=== PATIENT | male | born 1975 | race Caucasian/White ===

== ENCOUNTER 2017-12-10 07:03 | Emergency (ER) | END 2017-12-10 07:18 | disposition left against medical advice (07) | LOC: UCCORT 07:03 | DX: N39.9 Disorder of urinary system, unspecified (principal); Z53.21 Procedure and treatment not carried out due to patient leaving prior to being seen by health care provider ==

== ENCOUNTER 2018-06-06 08:08 | Emergency (ER) | payer BC ==
[2018-06-06 08:32] VITALS: BP 145/99
--- NOTE | 2018-06-06 08:40 | UC ---
Lower Extremity/Ankle HPI - HPI Summary HPI Summary: left great toe infection, redness and swelling. He is a runner and a toe nail that is growing into his skin and causeing pain. He clipped this nail short recently as well. NO DM or other medical problems. - History of Current Complaint Chief Complaint: YELENAkin Stated Complaint: LEFT TOE CONCERN Time Seen by Provider: 06/06/18 08:25 Hx Obtained From: Patient Onset/Duration: Gradual Onset, Lasting Days Severity Initially: Mild Severity Currently: Moderate Pain Intensity: 9 Aggravating Factor(s): Standing, Ambulation Alleviating Factor(s): Rest, Elevation Able to Bear Weight: Yes - Allergies/Home Medications Allergies/Adverse Reactions: Allergies Allergy/AdvReac Type Severity Reaction Status Date / Time No Known Allergies Allergy Verified 06/06/18 08:22 PMH/Surg Hx/FS Hx/Imm Hx Previously Healthy: Yes - Surgical History Surgical History: Yes Surgery Procedure, Year, and Place: RIGHT KNEE TORN MINISCUS REPAIR - Family History Known Family History: Positive: Other - No related foot disease. - Social History Alcohol Use: Occasionally Substance Use Type: None Smoking Status (MU): Former Smoker Type: Cigarettes When Did the Patient Quit Smoking/Using Tobacco: 1994 Household Exposure Type: Cigarettes Review of Systems Skin: Bruising, Other - redness. All Other Systems Reviewed And Are Negative: Yes Physical Exam Triage Information Reviewed: Yes Appearance: Well-Appearing, No Pain Distress, Well-Nourished Vital Signs: Initial Vital Signs Temp 98.3 F 06/06/18 08:22 Pulse 55 06/06/18 08:22 Resp 16 06/06/18 08:22 BP 145/99 06/06/18 08:22 Pulse Ox 99 06/06/18 08:22 Vital Signs Reviewed: Yes Eyes: Positive: Conjunctiva Clear ENT: Positive: Pharynx normal, Pharyngeal erythema Neck: Negative: Nuchal Rigidity Respiratory: Positive: No respiratory distress, No accessory muscle use Cardiovascular: Positive: Brisk Capillary Refill Abdomen Description: Negative: Distended Musculoskeletal: Positive: Strength Intact, ROM Intact Neurological: Positive: Alert, Muscle Tone Normal. Negative: Fatigued Psychological: Positive: Normal Response To Family. Negative: Age Appropriate Behavior Skin: Positive: Other - Left great toe medial nail is growing into the skin and there is inflammation that is localized. it is mildly tender. NO streaking or redness moving up the toe. Lower Extremity Course/Dx - Differential Dx/Diagnosis Provider Diagnoses: ingrown nail. toe cellulitis. Discharge - Sign-Out/Discharge Documenting (check all that apply): Patient Departure - Discharge Plan Condition: Good Disposition: HOME Prescriptions: Ciprofloxacin TAB* [Cipro 500 MG TAB*] 500 mg PO BID #20 tab Patient Education Materials: Ingrown Nail (ED), Paronychia (ED) Referrals: No Primary Care Phys,NOPCP [Primary Care Provider] - Additional Instructions: Epsom salt soaks twice a day. REturn for any worsening. - Billing Disposition and Condition Condition: GOOD Disposition: Home
== END 2018-06-06 08:45 | disposition home or self-care (01) ==
LOC: UCCORT 08:08
DX: L60.0 Ingrowing nail (principal); L03.032 Cellulitis of left toe; Z87.891 Personal history of nicotine dependence
CPT/HCPCS: 99212; G0463

== ENCOUNTER 2019-08-08 10:21 | Emergency (ER) | payer BC ==
[2019-08-08 11:02] VITALS: BP 127/84
[2019-08-08] MEDS ORDERED: Ondansetron ODT TAB* 4 MG PO ONE (11:30)
[2019-08-08] MEDS ORDERED: Acetaminophen TAB* 325 MG PO ONE (11:30)
--- NOTE | 2019-08-08 11:30 | UC ---
Headache HPI - HPI Summary HPI Summary: 44-year-old male comes in with chief complaint of headache. Headache started 3 days ago over the course of several hours. Patient relates the headache is a 10 out of 10. Does have photophobia and nausea and vomiting. He has taken some [id number] medications which have not helped at all with the headache. Denies any neck pain. No upper respiratory tract infection symptoms no fevers noted at home. Besides the photophobia no vision changes no difficulty speech no weakness or numbness. - History Of Current Complaint Chief Complaint: UCHeadache Stated Complaint: MAURER Time Seen by Provider: 08/08/19 11:05 Pain Intensity: 10 - Allergies/Home Medications Allergies/Adverse Reactions: Allergies Allergy/AdvReac Type Severity Reaction Status Date / Time No Known Allergies Allergy Verified 08/08/19 11:03 Home Medications: Home Medications NK [No Home Medications Reported] 08/08/19 [History Confirmed 08/08/19] PMH/Surg Hx/FS Hx/Imm Hx Previously Healthy: Yes - Surgical History Surgical History: Yes Surgery Procedure, Year, and Place: RIGHT KNEE TORN MINISCUS REPAIR - Family History Known Family History: Positive: Other - No related foot disease. - Social History Alcohol Use: Occasionally Substance Use Type: None Smoking Status (MU): Former Smoker Type: Cigarettes When Did the Patient Quit Smoking/Using Tobacco: 1994 Household Exposure Type: Cigarettes Review of Systems All Other Systems Reviewed And Are Negative: Yes Constitutional: Positive: Other - SEE HPI Skin: Positive: Negative Eyes: Positive: Photophobia ENT: Positive: Negative Respiratory: Positive: Negative Cardiovascular: Positive: Negative Gastrointestinal: Positive: Vomiting, Nausea Genitourinary: Positive: Negative Motor: Positive: Negative Neurovascular: Positive: Negative Musculoskeletal: Positive: Negative Neurological: Positive: Headache Psychological: Positive: Negative Is Patient Immunocompromised?: No Physical Exam Triage Information Reviewed: Yes Appearance: Well-Nourished, Ill-Appearing - MILD, Pain Distress - MILD Vital Signs: Initial Vital Signs Temp 99.3 F 08/08/19 10:56 Pulse 58 08/08/19 10:56 Resp 16 08/08/19 10:56 BP 127/84 08/08/19 10:56 Pulse Ox 99 08/08/19 10:56 Vital Signs Reviewed: Yes Eyes: Positive: Conjunctiva Clear, Other: - Mild photophobia to exam. PERRLA EOMI. ENT: Positive: Pharyngeal erythema, TMs normal Neck: Positive: Supple Respiratory: Positive: Lungs clear, Normal breath sounds, No respiratory distress Cardiovascular: Positive: RRR Musculoskeletal: Positive: Strength Intact, ROM Intact Neurological: Positive: Alert, Muscle Tone Normal, Other: - No focal neurologic deficit on my exam. Psychological: Positive: Age Appropriate Behavior Skin Exam: Normal Headache Course/Dx - Course Course Of Treatment: Because this is the patient's worse headache of his life I recommended further evaluation and care and emergency Department. Discussed the case with the [facility] emergency department provider Ruth Ann. Patient prefers to go by POV. - Differential Dx/Diagnosis Provider Diagnosis: Headache Discharge ED - Sign-Out/Discharge Documenting (check all that apply): Patient Departure All imaging exams completed and their final reports reviewed: No Studies - Discharge Plan Condition: Stable Disposition: HOME-RECOMMEND TO ED Patient Education Materials: Acute Headache (ED) Referrals: [facility] [Outside] Additional Instructions: GO DIRECTLY TO THE EMERGENCY DEPARTMENT FOR FURTHER EVALUATION AND CARE OF YOUR HEADACHE. - Billing Disposition and Condition Condition: STABLE Disposition: Home-Recommend to ED
== END 2019-08-08 11:30 | disposition home health service (06) ==
LOC: UCCORT 10:21
DX: R51 Headache (principal); H53.149 Visual discomfort, unspecified; R11.2 Nausea with vomiting, unspecified; Z87.891 Personal history of nicotine dependence
CPT/HCPCS: 99212; A9270-GY; G0463